=== PATIENT | male | born 1980 | race Caucasian/White ===

== ENCOUNTER 2016-06-21 07:49 | Emergency (ER) | payer OTHER ==
--- NOTE | 2016-06-21 08:00 | UCPHY ---
H & P Time Seen by Provider: 06/21/16 07:58 Patient Type: Established HPI/ROS: 35-year-old male presents complaining of sore throat, nasal congestion and cough for 2-3 days Review of systems As per HPI General no fever no chills no weakness HEENT no eye pain no eye discharge. No eye redness, positive sore throat Respiratory positive cough, no shortness of breath Cardiac no chest pain, no peripheral edema GI no abdominal pain, no diarrhea, no constipation, no nausea, no vomiting no flank pain, no hematuria, no dysuria Musculoskeletal no myalgias, no joint pain Heme no easy bruising, no easy bleeding Endo no polyuria, no polydipsia Skin no rashes, no pruritus Neuro no syncope, no dizziness, no headaches Psych is no suicidal ideation, no homicidal ideation Past Medical/Surgical History: Noncontributory Social History: Alcohol socially Smoking Status: Former smoker Physical Exam: 35-year-old male alert and oriented no acute distress nontoxic appearance afebrile Atraumatic normocephalic Extraocular muscles intact, anicteric Nares mild yellowish discharge Oropharynx mild erythema no tonsillar swelling no exudate no uvular deviation, tolerating own secretions Neck supple no lymphadenopathy Lungs clear to auscultation bilaterally Heart regular rate and rhythm Abdomen normoactive bowel sounds soft nontender Extremities no cyanosis clubbing or edema Skin no rash Constitutional: Initial Vital Signs Temperature (C) 36.7 C 06/21/16 08:05 Heart Rate 73 06/21/16 08:05 Respiratory Rate 18 06/21/16 08:05 Blood Pressure 139/92 H 06/21/16 08:05 O2 Sat (%) 95 06/21/16 08:05 O2 Delivery Mode Room Air Allergies/Adverse Reactions: erythromycin base Allergy (Verified 06/21/16 08:05) whey Allergy (Verified 06/21/16 08:05) Home Medications: Medication Instructions Recorded NK [No Known Home Meds] 10/05/15 Medical Decision Making ED Course/Re-evaluation: Patient seen and evaluated for cold symptoms, sore throat, cough Physical exam significant for nasal drainage, clear lungs, mild erythema to the throat Rapid strep negative Impression Viral pharyngitis, URI Plan Symptomatic care Rest, plenty of liquids, acetaminophen - Data Points Laboratory Results: 06/21/16 06/21/16 Unknown 08:00 Group A Strep Screen NEGATIVE (NEGATIVE) Group A Strep DNA Pending Departure - Departure Disposition: Home, Routine, Self-Care Clinical Impression: Acute viral syndrome Condition: Good Instructions: Pharyngitis (ED), Upper Respiratory Infection (ED) Referrals: NONE *PRIMARY CARE P,. [Primary Care Provider] - As per Instructions [facility] [Provider Group] - As per Instructions - PQRS PQRS Measurement: na
[2016-06-21 08:07] VITALS: BP 139/92; PULSE 73; RESP 18; TEMP 98.1; O2SAT 95
== END 2016-06-21 08:25 | disposition home or self-care (01) ==
LOC: CED 07:49
DX: J06.9 Acute upper respiratory infection, unspecified (principal); R09.81 Nasal congestion; Z87.891 Personal history of nicotine dependence
CPT/HCPCS: 87880-PO; 99214-PO; G0463-PO